=== PATIENT | female | born 1940 | race Caucasian/White ===

== ENCOUNTER 2017-11-19 10:05 | Outpatient (CLI) | payer MEDICARE, OTHER ==
--- NOTE | 2017-11-19 13:03 | MMO ---
BILATERAL SCREENING MAMMOGRAM: Date: 11/19/17 HISTORY: 76-year-old female. Routine screening mammography. COMPARISON: 11/18/16. TECHNIQUE: CC and MLO views of both breasts are submitted for interpretation. This patient's mammogram was reviewed with the assistance of computer-aided detection. FINDINGS: The breasts are composed of scattered fibroglandular tissue. Bilaterally, no suspicious dominant mass , architectural distortion, or suspicious calcifications. There are benign-appearing calcifications i n the right breast. IMPRESSION: BIRADS 2: Benign Finding(s) RECOMMENDATION: Annual mammogram. POS: [facility]
== END 2017-11-19 10:06 | disposition home or self-care (01) ==
LOC: SCSMAMMO 10:05
PROVIDERS: ATTEND Family Medicine
DX: Z12.31 Encounter for screening mammogram for malignant neoplasm of breast (principal)
CPT/HCPCS: 77067